=== PATIENT | female | born 1960 | race Two or more races ===

== ENCOUNTER 2020-01-14 23:27 | Emergency (ER) | payer MEDICAID, OTHER ==
[~2020-01-14] VITALS: Ht 162.6 cm; Wt 59.0 kg
[2020-01-14 23:38] VITALS: BP 139/87
[2020-01-14] MEDS ORDERED: GASTROGRAFIN 30 ML SOL ONE (23:51)
== END 2020-01-15 01:12 | disposition home or self-care (01) ==
LOC: EDBD 23:27 → ER 23:29
DX: K94.23 Gastrostomy malfunction (principal); I10 Essential (primary) hypertension
CPT/HCPCS: 74018; 99283; Q9963

== ENCOUNTER 2020-01-22 13:23 | Emergency (ER) | payer MEDICAID ==
[2020-01-22 13:34] VITALS: BP 135/80
[2020-01-22] MEDS ORDERED: GASTROGRAFIN 120 ML SOL ONE (14:20)
[2020-01-22] MEDS ORDERED: GASTROGRAFIN 30 ML SOL ONE (14:34)
== END 2020-01-22 16:42 | disposition home or self-care (01) ==
LOC: EDBD 13:23 → ER 13:23
DX: K94.23 Gastrostomy malfunction (principal); I10 Essential (primary) hypertension; Z86.73 Personal history of transient ischemic attack (TIA), and cerebral infarction without residual deficits
CPT/HCPCS: 43762; 74021; 99284; Q9963

== ENCOUNTER 2022-11-08 18:24 | Inpatient (IN) | payer MEDICAID ==
[~2022-11-08] VITALS: Ht 152.4 cm; Wt 49.3 kg
[2022-11-08] MEDS ORDERED: ETOMIDATE (2MG/ML) 20ML VIAL IV ONE ×2 (18:34→18:45)
[2022-11-08] MEDS ORDERED: SUCCINYLCHOLINE CHLORIDE 20 MG/ML 10ML VIAL IV ONE ×2 (18:35→18:45)
[2022-11-08] MEDS ORDERED: MIDAZOLAM DRIP 50 mg/50mL 50 ML IV ONE (18:38)
[2022-11-08] MEDS ORDERED: SODIUM CHLORIDE 0.9% 1,000 ML IVB ONE (18:45)
[2022-11-08] MEDS ORDERED: NOREPINEPHRINE 8 MG/250ML KIT 250 ML IV ONE (18:48)
[2022-11-08 18:49] VITALS: BP 79/41
[2022-11-08] MEDS: MIDAZOLAM DRIP 50 mg/50mL 50 ML IV SCH (19:15)
[2022-11-08] MEDS: NOREPINEPHRINE 8 MG/250ML KIT 250 ML IV SCH (19:15)
[2022-11-08 20:20] VITALS: BP 94/51
[2022-11-08 20:36] LABS: Basophils # (auto) 0 10 ^3/uL (0-0.2); Eosinophils # (auto) 0 10 ^3/uL (0-0.8); Hemoglobin 11.6 g/dL (12.2-16.2); Mean Corpuscular Hemoglobin 29.6 pg (28.0-32.0); Monocytes # (auto) 0.2 10 ^3/uL (0-1.3); Nucleated Red Blood Cells % 0.1 %
[2022-11-08 20:40] LABS: Basophils % (auto) 0.1 % (0.0-2.0); Hematocrit 38.7 % (36.0-46.0); Lymphocytes # (auto) 1.1 10 ^3/uL (0.4-5.4); Mean Corpuscular Hgb Conc. 29.9 g/dL (32.0-36.0); Monocytes % (auto) 2.2 % (0.0-12.0); Neutrophils # (auto) 6.8 10 ^3/uL (1.6-8.6); Neutrophils % (auto) 83.7 % (37.0-80.0); Red Blood Cells 3.91 10^6/uL (4.0-5.20); Red Cell Distribution Width 19.5 % (11.8-14.3); White Blood Cell 8.2 10^3/uL (4.4-10.8)
[2022-11-08 20:56] LABS: INR 1.18 (0.9-1.15); Partial Thromboplastin Time 25.6 sec (24.6-33.4)
[2022-11-08 21:07] LABS: BUN/Creatinine Ratio 58.8; Calcium 8.1 mg/dL (8.5-10.1); Magnesium 3.4 mg/dL (1.6-2.6); Potassium 3.9 mmol/L (3.5-5.1)
[2022-11-08 21:28] LABS: Bilirubin, Total 0.9 mg/dL (0.2-1.0); Total Protein 6.5 g/dL (6.4-8.2)
[2022-11-08] MEDS ORDERED: levoFLOXacin 500MG 100 ML IV ONE (21:30)
[2022-11-08] MEDS ORDERED: cefTRIAXone 1GM/50ML D5W 50 ML IV ONE (21:30)
[2022-11-08] MEDS ORDERED: SODIUM CHLORIDE 0.9% 1,000 ML IV ONE (21:30)
[2022-11-08 22:15] VITALS: BP 87/43
[2022-11-08] MEDS ORDERED: LACTATED RINGER'S 2,000 ML IV ONE (22:15)
[2022-11-08 22:43] LABS: Urine Bacteria NONE SEEN /hpf (None Seen); Urine Blood TRACE /uL (Negative); Urine Mucus FEW (None Seen); Urine Specific Gravity 1.029 (1.001-1.035); Urine WBC 3 /hpf (0 - 5)
[2022-11-09] VITALS (74 sets, daily range): BP systolic 90–138; BP diastolic 42–66
[2022-11-09] MEDS ORDERED: D5W 5% 1,000 ML IV ONE (00:15)
[2022-11-09] MEDS ORDERED: ALBUMIN 25% 100 ML IV ONE (02:30)
[2022-11-09] MEDS ORDERED: VASOPRESSIN 20 UNIT/ML ONE (03:00)
[2022-11-09] MEDS ORDERED: NITROGLYCERIN 0.4 MG SL TAB SL PRN (03:00)
[2022-11-09] MEDS ORDERED: VANCOMYCIN PER PHARMACY 0 MG IV SCH (03:00)
[2022-11-09] MEDS ORDERED: MORPHINE SULFATE INJ 2 MG/ml SYRG IV PRN (03:00)
[2022-11-09] MEDS ORDERED: D5W 5% 1,000 ML IV SCH (03:00)
[2022-11-09] MEDS ORDERED: ACETAMINOPHEN 325 MG TAB PO PRN (03:00)
[2022-11-09] MEDS ORDERED: ONDANSETRON HCL 4 MG/2 ML VIAL IV PRN (03:00)
[2022-11-09] MEDS ORDERED: DEXTROSE (50%) 50ML SYRG IV PRN ×5 (03:00→11:00)
[2022-11-09] MEDS: VASOPRESSIN 20 UNITS in SODIUM CHL 0.9% 99 ML IV SCH ×2 (03:08→13:52)
[2022-11-09 03:30] LABS: Calcium 7.4 mg/dL (8.5-10.1)
[2022-11-09] MEDS ORDERED: VANCOMYCIN 1GM/250ML 250 ML IV ONE (03:30)
[2022-11-09 03:39] LABS: BUN/Creatinine Ratio 52.6
[2022-11-09] MEDS ORDERED: SOD CHL 0.45% 1,000 ML IV SCH (05:30)
[2022-11-09] MEDS ORDERED: ACCU-CHEK COMFORT CURVE STRIP VI SCH ×3 (06:00→12:00)
[2022-11-09] MEDS ORDERED: InsuLIN REG 1unit/0.01ml Soln (100units/ml) SC SCH ×3 (06:00→12:00)
[2022-11-09] MEDS: NOREPINEPHRINE 8 MG/250ML KIT 250 ML IV SCH ×3 (08:58→21:32)
[2022-11-09] MEDS: MIDAZOLAM DRIP 50 mg/50mL 50 ML IV SCH ×4 (09:56→23:20)
[2022-11-09] MEDS ORDERED: AZITHROMYCIN 500MG/ 250ML 250 ML IV SCH (10:00)
[2022-11-09] MEDS ORDERED: DexAMETHasone SOD PHOS 10MG/1ML VIAL INJ IV ONE (11:00)
[2022-11-09] MEDS ORDERED: CEFEPIME 2 GM in SODIUM CHL 0.9% 50 ML IV ONE (11:00)
[2022-11-09] MEDS: ENOXAPARIN SOD 40 MG/0.4 ML SYRINGE SC SCH (12:01)
[2022-11-09] MEDS: PANTOPRAZOLE 40 MG/10 ML VIAL INJ IV SCH (12:01)
[2022-11-09] MEDS: fentaNYL Drip 2500mCg/250mlNS 250 ML IV SCH (12:06)
[2022-11-09] MEDS: ACCU-CHEK COMFORT CURVE STRIP VI SCH ×13 (12:06→23:35)
[2022-11-09] MEDS: InsuLIN REG 1unit/0.01ml Soln (100units/ml) SC SCH ×4 (12:22→23:34)
[2022-11-09] MEDS: POTASSIUM CHLORIDE 40 MEQ in SOD CHL 0.45% 1,000 ML IV SCH ×2 (16:31→21:12)
[2022-11-09] MEDS: InsuLIN R (HUMAN) 100 UNITS in SODIUM CHL 0.9% 99 ML IV SCH (16:46)
[2022-11-09] MEDS ORDERED: ASPI325T4 PO (19:13)
[2022-11-09] MEDS ORDERED: PSYL58.632 PO (19:13)
[2022-11-09] MEDS: FREE WATER GT SCH (22:00)
[2022-11-09] MEDS: CEFEPIME 2 GM in SODIUM CHL 0.9% 50 ML IV SCH (22:00)
[2022-11-09 22:22] LABS: Magnesium 2.6 mg/dL (1.6-2.6); Potassium 3.1 mmol/L (3.5-5.1)
[2022-11-10] VITALS (103 sets, daily range): BP systolic 90–132; BP diastolic 50–69
[2022-11-10] MEDS: VASOPRESSIN 20 UNITS in SODIUM CHL 0.9% 99 ML IV SCH ×3 (00:59→23:13)
[2022-11-10] MEDS: ACCU-CHEK COMFORT CURVE STRIP VI SCH ×17 (01:30→22:46)
[2022-11-10] MEDS: FREE WATER GT SCH ×7 (02:13→23:28)
[2022-11-10] MEDS: NOREPINEPHRINE 8 MG/250ML KIT 250 ML IV SCH ×2 (04:01→14:43)
[2022-11-10] MEDS: MIDAZOLAM DRIP 50 mg/50mL 50 ML IV SCH (04:02)
[2022-11-10] MEDS: InsuLIN REG 1unit/0.01ml Soln (100units/ml) SC SCH ×2 (04:03→09:06)
[2022-11-10 04:14] LABS: Basophils # (auto) 0.1 10 ^3/uL (0-0.2); Basophils % (auto) 0.4 % (0.0-2.0); Eosinophils # (auto) 0 10 ^3/uL (0-0.8); Hematocrit 32.8 % (36.0-46.0); Hemoglobin 10.3 g/dL (12.2-16.2); Lymphocytes # (auto) 1.4 10 ^3/uL (0.4-5.4); Lymphocytes % (auto) 10.6 % (10.0-50.0); Mean Corpuscular Hemoglobin 29.1 pg (28.0-32.0); Mean Corpuscular Hgb Conc. 31.3 g/dL (32.0-36.0); Mean Corpuscular Volume 93.1 fL (80.0-100.0); Monocytes # (auto) 0.2 10 ^3/uL (0-1.3); Monocytes % (auto) 1.3 % (0.0-12.0); Neutrophils # (auto) 11.3 10 ^3/uL (1.6-8.6); Neutrophils % (auto) 87.7 % (37.0-80.0); Nucleated Red Blood Cells % 0.2 %; Red Blood Cells 3.52 10^6/uL (4.0-5.20); Red Cell Distribution Width 17.5 % (11.8-14.3); White Blood Cell 12.9 10^3/uL (4.4-10.8)
[2022-11-10 04:41] LABS: Albumin 2.3 g/dL (3.4-5.0); Calcium 7.9 mg/dL (8.5-10.1); Potassium 3.6 mmol/L (3.5-5.1)
[2022-11-10 04:44] LABS: Bilirubin, Total 0.7 mg/dL (0.2-1.0); Total Protein 5.5 g/dL (6.4-8.2)
[2022-11-10] MEDS: fentaNYL Drip 2500mCg/250mlNS 250 ML IV SCH (07:37)
[2022-11-10] MEDS: PANTOPRAZOLE 40 MG/10 ML VIAL INJ IV SCH (10:16)
[2022-11-10] MEDS: D5W 5% 1,000 ML IV SCH ×3 (10:16→23:05)
[2022-11-10] MEDS: DexAMETHasone SOD PHOS 10MG/1ML VIAL INJ IV SCH (10:16)
[2022-11-10] MEDS: CEFEPIME 2 GM in SODIUM CHL 0.9% 50 ML IV SCH ×2 (10:16→21:15)
[2022-11-10] MEDS: ENOXAPARIN SOD 40 MG/0.4 ML SYRINGE SC SCH (10:16)
[2022-11-10] MEDS: InsuLIN R (HUMAN) 100 UNITS in SODIUM CHL 0.9% 99 ML IV SCH ×2 (10:36→19:45)
[2022-11-10] MEDS: INSULIN LANTUS (GLARGINE) 1 /0.01ml (100units/ml) SC SCH (10:36)
[2022-11-10] MEDS: VANCOMYCIN 750mg/250ml 250 ML IV SCH (12:57)
[2022-11-10 14:56] LABS: Cholesterol 113 mg/dL (< 200)
[2022-11-10 14:58] LABS: HDL Cholesterol 12 mg/dL (40-59); LDL Cholesterol 58 mg/dL (< 100); Triglycerides 250 mg/dL (< 150)
[2022-11-10] MEDS: Juven Fruit Punch Powder PACKET 28.8gm PO SCH (18:00)
[2022-11-11] VITALS (100 sets, daily range): BP systolic 79–135; BP diastolic 32–72
[2022-11-11] MEDS: ACCU-CHEK COMFORT CURVE STRIP VI SCH ×12 (00:05→23:51)
[2022-11-11] MEDS: MIDAZOLAM DRIP 50 mg/50mL 50 ML IV SCH ×3 (01:11→21:22)
[2022-11-11] MEDS: InsuLIN R (HUMAN) 100 UNITS in SODIUM CHL 0.9% 99 ML IV SCH (01:13)
[2022-11-11] MEDS: D5W 5% 1,000 ML IV SCH (01:13)
[2022-11-11] MEDS: FREE WATER GT SCH ×7 (03:00→23:51)
[2022-11-11] MEDS: NOREPINEPHRINE 8 MG/250ML KIT 250 ML IV SCH ×2 (03:32→23:54)
[2022-11-11 03:59] LABS: Basophils # (auto) 0.1 10 ^3/uL (0-0.2); Basophils % (auto) 0.4 % (0.0-2.0); Eosinophils # (auto) 0 10 ^3/uL (0-0.8); Hematocrit 33.5 % (36.0-46.0); Hemoglobin 10.4 g/dL (12.2-16.2); Lymphocytes % (auto) 7.5 % (10.0-50.0); Mean Corpuscular Hemoglobin 28.9 pg (28.0-32.0); Mean Corpuscular Volume 93.1 fL (80.0-100.0); Monocytes # (auto) 0.2 10 ^3/uL (0-1.3); Monocytes % (auto) 1.5 % (0.0-12.0); Neutrophils # (auto) 11.9 10 ^3/uL (1.6-8.6); Neutrophils % (auto) 90.6 % (37.0-80.0); Nucleated Red Blood Cells % 0.1 %; Red Cell Distribution Width 17.1 % (11.8-14.3); White Blood Cell 13.1 10^3/uL (4.4-10.8)
[2022-11-11 04:09] LABS: BUN/Creatinine Ratio 35.2; Calcium 7.7 mg/dL (8.5-10.1)
[2022-11-11 04:21] LABS: Potassium 2.4 mmol/L (3.5-5.1)
[2022-11-11] MEDS: Juven Fruit Punch Powder PACKET 28.8gm PO SCH ×2 (08:00→18:00)
[2022-11-11] MEDS: ENOXAPARIN SOD 40 MG/0.4 ML SYRINGE SC SCH (09:03)
[2022-11-11] MEDS: PANTOPRAZOLE 40 MG/10 ML VIAL INJ IV SCH (09:03)
[2022-11-11] MEDS: POTASSIUM CHL 20MEQ/100ML 100 ML IV SCH ×2 (09:04→11:40)
[2022-11-11] MEDS: DexAMETHasone SOD PHOS 10MG/1ML VIAL INJ IV SCH (09:04)
[2022-11-11] MEDS: CEFEPIME 2 GM in SODIUM CHL 0.9% 50 ML IV SCH ×2 (09:05→22:05)
[2022-11-11] MEDS: INSULIN LANTUS (GLARGINE) 1 /0.01ml (100units/ml) SC SCH (09:05)
[2022-11-11] MEDS: POTASSIUM CHLORIDE 40 MEQ in D5W 5% 1,000 ML IV SCH ×3 (09:30→21:20)
[2022-11-11] MEDS: VASOPRESSIN 20 UNITS in SODIUM CHL 0.9% 99 ML IV SCH ×2 (10:20→21:19)
[2022-11-11 10:32] LABS: BUN/Creatinine Ratio 30.6; Calcium 8.2 mg/dL (8.5-10.1)
[2022-11-11] MEDS: fentaNYL Drip 2500mCg/250mlNS 250 ML IV SCH (11:15)
[2022-11-11] MEDS ORDERED: DEXTROSE (50%) 50ML SYRG IV PRN (11:30)
[2022-11-11] MEDS: InsuLIN REG 1unit/0.01ml Soln (100units/ml) SC SCH ×4 (11:53→23:52)
[2022-11-11 11:58] LABS: Potassium 2.5 mmol/L (3.5-5.1)
[2022-11-11] MEDS: VANCOMYCIN 750mg/250ml 250 ML IV SCH (12:30)
[2022-11-11] MEDS: Osmolite 1.2 Cal One Liter GT SCH (21:23)
[2022-11-12] VITALS (98 sets, daily range): BP systolic 81–126; BP diastolic 33–67
[2022-11-12] MEDS: FREE WATER GT SCH ×6 (03:29→18:00)
[2022-11-12] MEDS: ACCU-CHEK COMFORT CURVE STRIP VI SCH ×3 (04:30→18:11)
[2022-11-12] MEDS: InsuLIN REG 1unit/0.01ml Soln (100units/ml) SC SCH ×3 (04:31→18:29)
[2022-11-12 04:44] LABS: Basophils # (auto) 0.1 10 ^3/uL (0-0.2); Basophils % (auto) 0.6 % (0.0-2.0); Eosinophils # (auto) 0 10 ^3/uL (0-0.8); Hematocrit 33.2 % (36.0-46.0); Hemoglobin 10.6 g/dL (12.2-16.2); Lymphocytes # (auto) 1.1 10 ^3/uL (0.4-5.4); Lymphocytes % (auto) 8.3 % (10.0-50.0); Mean Corpuscular Hemoglobin 29.4 pg (28.0-32.0); Mean Corpuscular Hgb Conc. 31.9 g/dL (32.0-36.0); Mean Corpuscular Volume 92.1 fL (80.0-100.0); Monocytes # (auto) 0.3 10 ^3/uL (0-1.3); Monocytes % (auto) 2.4 % (0.0-12.0); Neutrophils % (auto) 88.7 % (37.0-80.0); Red Blood Cells 3.61 10^6/uL (4.0-5.20); Red Cell Distribution Width 17.3 % (11.8-14.3); White Blood Cell 13.5 10^3/uL (4.4-10.8)
[2022-11-12 05:13] LABS: Calcium 7.6 mg/dL (8.5-10.1); Potassium 4.5 mmol/L (3.5-5.1)
[2022-11-12] MEDS: POTASSIUM CHLORIDE 40 MEQ in D5W 5% 1,000 ML IV SCH (05:54)
[2022-11-12] MEDS: Juven Fruit Punch Powder PACKET 28.8gm PO SCH ×2 (08:00→16:58)
[2022-11-12] MEDS: VASOPRESSIN 20 UNITS in SODIUM CHL 0.9% 99 ML IV SCH ×2 (08:34→19:41)
[2022-11-12] MEDS: DexAMETHasone SOD PHOS 10MG/1ML VIAL INJ IV SCH (09:00)
[2022-11-12] MEDS: PANTOPRAZOLE 40 MG/10 ML VIAL INJ IV SCH (09:00)
[2022-11-12] MEDS: CEFEPIME 2 GM in SODIUM CHL 0.9% 50 ML IV SCH (09:00)
[2022-11-12] MEDS: ENOXAPARIN SOD 40 MG/0.4 ML SYRINGE SC SCH (09:00)
[2022-11-12] MEDS: INSULIN LANTUS (GLARGINE) 1 /0.01ml (100units/ml) SC SCH (09:02)
[2022-11-12] MEDS: fentaNYL Drip 2500mCg/250mlNS 250 ML IV SCH (11:15)
[2022-11-12] MEDS ORDERED: DEXTROSE (50%) 50ML SYRG IV PRN (11:30)
[2022-11-12] MEDS ORDERED: levoFLOXacin 750MG 150 ML IV ONE (11:30)
[2022-11-12] MEDS: NOREPINEPHRINE 8 MG/250ML KIT 250 ML IV SCH (14:27)
[2022-11-12] MEDS: D5W 5% 1,000 ML IV SCH ×2 (15:45→23:19)
[2022-11-12] MEDS ORDERED: DESMOPRESSIN ACET 4 MCG/1 ML AMPULE IV ONE (17:00)
[2022-11-12 18:58] LABS: Urine Bacteria FEW /hpf (None Seen); Urine Blood 1+ /uL (Negative); Urine Mucus FEW (None Seen); Urine Specific Gravity 1.007 (1.001-1.035); Urine WBC 2 /hpf (0 - 5)
[2022-11-13] VITALS (104 sets, daily range): BP systolic 83–122; BP diastolic 41–69
[2022-11-13] MEDS: InsuLIN REG 1unit/0.01ml Soln (100units/ml) SC SCH ×4 (00:34→18:14)
[2022-11-13] MEDS: ACCU-CHEK COMFORT CURVE STRIP VI SCH ×4 (00:34→18:12)
[2022-11-13] MEDS: FREE WATER GT SCH ×7 (04:52→18:12)
[2022-11-13] MEDS: D5W 5% 1,000 ML IV SCH ×3 (06:10→19:57)
[2022-11-13] MEDS: NOREPINEPHRINE 8 MG/250ML KIT 250 ML IV SCH ×3 (06:22→20:41)
[2022-11-13] MEDS: VASOPRESSIN 20 UNITS in SODIUM CHL 0.9% 99 ML IV SCH ×2 (06:48→16:36)
[2022-11-13] MEDS: Juven Fruit Punch Powder PACKET 28.8gm PO SCH ×2 (08:00→18:00)
[2022-11-13] MEDS: PANTOPRAZOLE 40 MG/10 ML VIAL INJ IV SCH (09:09)
[2022-11-13] MEDS: levoFLOXacin 750MG 150 ML IV SCH (09:09)
[2022-11-13] MEDS: ENOXAPARIN SOD 40 MG/0.4 ML SYRINGE SC SCH (09:10)
[2022-11-13] MEDS: DexAMETHasone SOD PHOS 10MG/1ML VIAL INJ IV SCH (09:10)
[2022-11-13] MEDS: INSULIN LANTUS (GLARGINE) 1 /0.01ml (100units/ml) SC SCH (09:10)
[2022-11-13 10:00] LABS: Hematocrit 31.3 % (36.0-46.0); Hemoglobin 10.3 g/dL (12.2-16.2)
[2022-11-13 10:02] LABS: Mean Corpuscular Hemoglobin 29.2 pg (28.0-32.0); Mean Corpuscular Hgb Conc. 32.9 g/dL (32.0-36.0); Mean Corpuscular Volume 88.7 fL (80.0-100.0); Red Blood Cells 3.52 10^6/uL (4.0-5.20); Red Cell Distribution Width 15.9 % (11.8-14.3)
[2022-11-13 10:12] LABS: Band Neutrophils % (manual) 0; Basophils % (manual) 0 (0.0-2.0); Blast Cells 0; Metamyelocytes % 0; Monocytes % (manual) 0 (0-12); Myelocytes % 0; Promyelocytes % 0; Reactive Lymphocytes 0
[2022-11-13] MEDS: fentaNYL Drip 2500mCg/250mlNS 250 ML IV SCH (11:15)
[2022-11-13 11:59] LABS: Eosinophils % (manual) 3 (0-7); Lymphocytes % (manual) 15 (10.0-50.0)
[2022-11-13 13:06] LABS: BUN/Creatinine Ratio 25.5; Calcium 7.2 mg/dL (8.5-10.1)
[2022-11-13 13:08] LABS: Potassium 2.8 mmol/L (3.5-5.1)
[2022-11-13] MEDS: POTASSIUM CHL 20MEQ/100ML 100 ML IV SCH ×4 (16:36→22:57)
[2022-11-13] MEDS: MIDAZOLAM DRIP 50 mg/50mL 50 ML IV SCH (18:45)
[2022-11-14] VITALS (101 sets, daily range): BP systolic 71–151; BP diastolic 32–78
[2022-11-14] MEDS: InsuLIN REG 1unit/0.01ml Soln (100units/ml) SC SCH ×4 (00:39→18:56)
[2022-11-14] MEDS: FREE WATER GT SCH ×5 (00:40→11:50)
[2022-11-14] MEDS: ACCU-CHEK COMFORT CURVE STRIP VI SCH ×4 (00:40→18:00)
[2022-11-14] MEDS: D5W 5% 1,000 ML IV SCH ×2 (02:41→11:49)
[2022-11-14 05:02] LABS: Basophils # (auto) 0 10 ^3/uL (0-0.2); Basophils % (auto) 0.4 % (0.0-2.0); Eosinophils # (auto) 0.1 10 ^3/uL (0-0.8); Eosinophils % (auto) 0.8 % (0.0-7.0); Hematocrit 30.2 % (36.0-46.0); Lymphocytes # (auto) 2.9 10 ^3/uL (0.4-5.4); Lymphocytes % (auto) 22.7 % (10.0-50.0); Mean Corpuscular Hemoglobin 28.9 pg (28.0-32.0); Mean Corpuscular Hgb Conc. 33.2 g/dL (32.0-36.0); Monocytes # (auto) 0.3 10 ^3/uL (0-1.3); Monocytes % (auto) 2.2 % (0.0-12.0); Neutrophils # (auto) 9.6 10 ^3/uL (1.6-8.6); Neutrophils % (auto) 73.9 % (37.0-80.0); Nucleated Red Blood Cells % 0.1 %; Red Blood Cells 3.47 10^6/uL (4.0-5.20); Red Cell Distribution Width 16.1 % (11.8-14.3)
[2022-11-14] MEDS: VASOPRESSIN 20 UNITS in SODIUM CHL 0.9% 99 ML IV SCH ×4 (05:02→17:21)
[2022-11-14 05:29] LABS: Albumin 1.8 g/dL (3.4-5.0); BUN/Creatinine Ratio 14.6; Potassium 3.5 mmol/L (3.5-5.1)
[2022-11-14 05:32] LABS: Bilirubin, Total 0.6 mg/dL (0.2-1.0); Total Protein 5.1 g/dL (6.4-8.2)
[2022-11-14] MEDS: Juven Fruit Punch Powder PACKET 28.8gm PO SCH ×2 (08:00→18:00)
[2022-11-14] MEDS: ENOXAPARIN SOD 40 MG/0.4 ML SYRINGE SC SCH (10:00)
[2022-11-14] MEDS: PANTOPRAZOLE 40 MG/10 ML VIAL INJ IV SCH (10:14)
[2022-11-14] MEDS: DexAMETHasone SOD PHOS 10MG/1ML VIAL INJ IV SCH (10:14)
[2022-11-14] MEDS: levoFLOXacin 750MG 150 ML IV SCH (10:15)
[2022-11-14] MEDS: MIDAZOLAM DRIP 50 mg/50mL 50 ML IV SCH (10:16)
[2022-11-14] MEDS: fentaNYL Drip 2500mCg/250mlNS 250 ML IV SCH (10:16)
[2022-11-14] MEDS: INSULIN LANTUS (GLARGINE) 1 /0.01ml (100units/ml) SC SCH (10:16)
[2022-11-14] MEDS ORDERED: SODIUM CHL 3% 500 ML IV ONE (12:45)
[2022-11-14] MEDS ORDERED: SODIUM CHLORIDE 0.9% 1,000 ML IV ONE (12:45)
[2022-11-14] MEDS: NOREPINEPHRINE BITARTRATE 16 MG in SODIUM CHL 0.9% 234 ML IV SCH (13:39)
[2022-11-15] VITALS (99 sets, daily range): BP systolic 85–150; BP diastolic 42–71
[2022-11-15] MEDS: ACCU-CHEK COMFORT CURVE STRIP VI SCH ×4 (00:06→18:00)
[2022-11-15] MEDS: InsuLIN REG 1unit/0.01ml Soln (100units/ml) SC SCH ×4 (00:06→17:46)
[2022-11-15 00:53] LABS: BUN/Creatinine Ratio 13.6; Calcium 6.6 mg/dL (8.5-10.1)
[2022-11-15 00:58] LABS: Potassium 2.9 mmol/L (3.5-5.1)
[2022-11-15] MEDS: POTASSIUM CHL 20MEQ/100ML 100 ML IV SCH ×5 (01:30→23:22)
[2022-11-15] MEDS ORDERED: POTASSIUM CHL 20MEQ/100ML 300 ML IV ONE (01:41)
[2022-11-15] MEDS: VASOPRESSIN 20 UNITS in SODIUM CHL 0.9% 99 ML IV SCH ×2 (05:09→16:41)
[2022-11-15] MEDS: Juven Fruit Punch Powder PACKET 28.8gm PO SCH ×2 (08:00→18:00)
[2022-11-15] MEDS: ENOXAPARIN SOD 40 MG/0.4 ML SYRINGE SC SCH (10:00)
[2022-11-15] MEDS: PANTOPRAZOLE 40 MG/10 ML VIAL INJ IV SCH (10:06)
[2022-11-15] MEDS: DexAMETHasone SOD PHOS 10MG/1ML VIAL INJ IV SCH (10:06)
[2022-11-15] MEDS: levoFLOXacin 750MG 150 ML IV SCH (10:21)
[2022-11-15] MEDS: INSULIN LANTUS (GLARGINE) 1 /0.01ml (100units/ml) SC SCH (10:45)
[2022-11-15] MEDS: fentaNYL Drip 2500mCg/250mlNS 250 ML IV SCH (11:15)
[2022-11-15] MEDS: ALBUMIN 25% 100 ML IV SCH ×2 (12:58→20:50)
[2022-11-15] MEDS: NOREPINEPHRINE BITARTRATE 16 MG in SODIUM CHL 0.9% 234 ML IV SCH (13:51)
[2022-11-15] MEDS ORDERED: CATHFLO ACTIVASE (ALTEPLASE) 2 MG VIAL IV ONE (16:15)
[2022-11-15] MEDS: MIDAZOLAM DRIP 50 mg/50mL 50 ML IV SCH (18:45)
[2022-11-15] MEDS: Osmolite 1.2 Cal One Liter GT SCH (20:00)
[2022-11-15 21:03] LABS: Albumin 2.7 g/dL (3.4-5.0)
[2022-11-15 21:06] LABS: BUN/Creatinine Ratio 17.4; Bilirubin, Total 0.8 mg/dL (0.2-1.0); Total Protein 5.2 g/dL (6.4-8.2)
[2022-11-15 21:12] LABS: Potassium 2.4 mmol/L (3.5-5.1)
[2022-11-16] VITALS (96 sets, daily range): BP systolic 73–153; BP diastolic 30–65
[2022-11-16] MEDS ORDERED: POTASSIUM CHL 20MEQ/100ML 200 ML IV ONE (00:41)
[2022-11-16] MEDS: POTASSIUM CHL 20MEQ/100ML 100 ML IV SCH ×4 (01:24→17:25)
[2022-11-16] MEDS: VASOPRESSIN 20 UNITS in SODIUM CHL 0.9% 99 ML IV SCH (03:32)
[2022-11-16] MEDS: ALBUMIN 25% 100 ML IV SCH (04:53)
[2022-11-16] MEDS: InsuLIN REG 1unit/0.01ml Soln (100units/ml) SC SCH ×5 (06:00→23:38)
[2022-11-16] MEDS: ACCU-CHEK COMFORT CURVE STRIP VI SCH ×5 (06:02→23:39)
[2022-11-16] MEDS: NOREPINEPHRINE BITARTRATE 16 MG in SODIUM CHL 0.9% 234 ML IV SCH (07:18)
[2022-11-16] MEDS: fentaNYL Drip 2500mCg/250mlNS 250 ML IV SCH (07:18)
[2022-11-16] MEDS: Juven Fruit Punch Powder PACKET 28.8gm PO SCH ×2 (07:19→18:00)
[2022-11-16] MEDS: ENOXAPARIN SOD 40 MG/0.4 ML SYRINGE SC SCH (09:28)
[2022-11-16] MEDS: levoFLOXacin 750MG 150 ML IV SCH (09:28)
[2022-11-16] MEDS: DexAMETHasone SOD PHOS 10MG/1ML VIAL INJ IV SCH (09:28)
[2022-11-16] MEDS: PANTOPRAZOLE 40 MG/10 ML VIAL INJ IV SCH (09:28)
[2022-11-16] MEDS: INSULIN LANTUS (GLARGINE) 1 /0.01ml (100units/ml) SC SCH (10:00)
[2022-11-16 10:36] LABS: Mean Corpuscular Hemoglobin 29.3 pg (28.0-32.0); Red Blood Cells 2.48 10^6/uL (4.0-5.20)
[2022-11-16 10:38] LABS: Hematocrit 21.1 % (36.0-46.0); Hemoglobin 7.3 g/dL (12.2-16.2); Mean Corpuscular Hgb Conc. 34.4 g/dL (32.0-36.0); Mean Corpuscular Volume 85.2 fL (80.0-100.0); Red Cell Distribution Width 15.7 % (11.8-14.3); White Blood Cell 9.3 10^3/uL (4.4-10.8)
[2022-11-16 10:46] LABS: Basophils % (manual) 0 (0.0-2.0); Blast Cells 0; Eosinophils % (manual) 0 (0-7); Metamyelocytes % 0; Myelocytes % 0; Promyelocytes % 0; Reactive Lymphocytes 0
[2022-11-16 11:21] LABS: Potassium 3.1 mmol/L (3.5-5.1)
[2022-11-16 11:29] LABS: Albumin 3.8 g/dL (3.4-5.0); BUN/Creatinine Ratio 23.1; Bilirubin, Total 1.5 mg/dL (0.2-1.0); Calcium 7.8 mg/dL (8.5-10.1); Magnesium 1.6 mg/dL (1.6-2.6); Total Protein 5.6 g/dL (6.4-8.2)
[2022-11-16] MEDS ORDERED: MAGNESIUM SULFATE 1GM/100ML 100 ML IV ONE (12:00)
[2022-11-16 12:18] LABS: Band Neutrophils % (manual) 70; Lymphocytes % (manual) 25 (10.0-50.0); Monocytes % (manual) 5 (0-12)
[2022-11-16] MEDS: GLYCOPYRROLATE 0.2 MG/ML 1ML VIAL IV PRN (13:20)
[2022-11-16] MEDS: MIDODRINE HCL 10 MG TAB GT SCH (18:05)
[2022-11-16] MEDS: MIDAZOLAM DRIP 50 mg/50mL 50 ML IV SCH (18:05)
[2022-11-17] VITALS (90 sets, daily range): BP systolic 72–129; BP diastolic 31–47
[2022-11-17 04:25] LABS: Hemoglobin 7.3 g/dL (12.2-16.2); Mean Corpuscular Hemoglobin 30.5 pg (28.0-32.0); Mean Corpuscular Volume 87.5 fL (80.0-100.0)
[2022-11-17 04:27] LABS: Hematocrit 20.8 % (36.0-46.0); Mean Corpuscular Hgb Conc. 34.8 g/dL (32.0-36.0); Red Blood Cells 2.38 10^6/uL (4.0-5.20); Red Cell Distribution Width 15.8 % (11.8-14.3); White Blood Cell 7.9 10^3/uL (4.4-10.8)
[2022-11-17 04:35] LABS: Basophils % (manual) 0 (0.0-2.0); Blast Cells 0; Eosinophils % (manual) 0 (0-7); Metamyelocytes % 0; Promyelocytes % 0; Reactive Lymphocytes 0
[2022-11-17 04:42] LABS: Albumin 3.3 g/dL (3.4-5.0); Calcium 7.9 mg/dL (8.5-10.1); Potassium 3.5 mmol/L (3.5-5.1)
[2022-11-17 04:46] LABS: BUN/Creatinine Ratio 41.7; Bilirubin, Total 0.8 mg/dL (0.2-1.0); Total Protein 5.3 g/dL (6.4-8.2)
[2022-11-17] MEDS: InsuLIN REG 1unit/0.01ml Soln (100units/ml) SC SCH ×3 (05:24→17:20)
[2022-11-17] MEDS: ACCU-CHEK COMFORT CURVE STRIP VI SCH ×3 (05:25→17:20)
[2022-11-17] MEDS: MIDODRINE HCL 10 MG TAB GT SCH ×3 (05:25→17:43)
[2022-11-17] MEDS: VASOPRESSIN 20 UNITS in SODIUM CHL 0.9% 99 ML IV SCH (05:34)
[2022-11-17 06:43] LABS: Band Neutrophils % (manual) 12; Lymphocytes % (manual) 26 (10.0-50.0); Monocytes % (manual) 9 (0-12); Myelocytes % 1
[2022-11-17] MEDS: Juven Fruit Punch Powder PACKET 28.8gm PO SCH ×2 (08:00→17:22)
[2022-11-17] MEDS: levoFLOXacin 750MG 150 ML IV SCH (09:58)
[2022-11-17] MEDS: PANTOPRAZOLE 40 MG/10 ML VIAL INJ IV SCH (09:58)
[2022-11-17] MEDS: DexAMETHasone SOD PHOS 10MG/1ML VIAL INJ IV SCH (09:58)
[2022-11-17] MEDS: ENOXAPARIN SOD 40 MG/0.4 ML SYRINGE SC SCH (09:58)
[2022-11-17] MEDS: INSULIN LANTUS (GLARGINE) 1 /0.01ml (100units/ml) SC SCH (10:00)
[2022-11-17] MEDS: DOPamine 1600MCG/ML D5W 250 ML IV SCH (10:37)
[2022-11-17] MEDS: fentaNYL Drip 2500mCg/250mlNS 250 ML IV SCH (11:15)
[2022-11-17] MEDS: NOREPINEPHRINE BITARTRATE 16 MG in SODIUM CHL 0.9% 234 ML IV SCH (11:45)
[2022-11-17] MEDS ORDERED: POTASSIUM CHLORIDE 40 MEQ, LIDOCAINE 1% (LOCAL ANESTH.) 4 ML in SODIUM CHL 0.9% 250 ML IV ONE ×2 (17:00→21:15)
[2022-11-17] MEDS: MIDAZOLAM DRIP 50 mg/50mL 50 ML IV SCH (18:45)
[2022-11-17] MEDS ORDERED: VASOPRESSIN 20 UNITS in SODIUM CHL 0.9% 99 ML IV PRN (19:45)
[2022-11-18] VITALS (100 sets, daily range): BP systolic 72–112; BP diastolic 33–68
[2022-11-18] MEDS ORDERED: ALBUTEROL SULF 2.5 MG/0.5ML(0.5%) NEB SOLN NEB PRN (00:45)
[2022-11-18] MEDS: ACCU-CHEK COMFORT CURVE STRIP VI SCH ×5 (01:06→23:13)
[2022-11-18] MEDS: DOPamine 1600MCG/ML D5W 250 ML IV SCH ×2 (02:25→17:51)
[2022-11-18 04:24] LABS: Basophils # (auto) 0 10 ^3/uL (0-0.2); Basophils % (auto) 0.1 % (0.0-2.0); Eosinophils # (auto) 0 10 ^3/uL (0-0.8); Eosinophils % (auto) 0.1 % (0.0-7.0); Hemoglobin 10.6 g/dL (12.2-16.2); Lymphocytes # (auto) 0.9 10 ^3/uL (0.4-5.4); Lymphocytes % (auto) 9.2 % (10.0-50.0); Mean Corpuscular Hemoglobin 29.9 pg (28.0-32.0); Mean Corpuscular Hgb Conc. 34.1 g/dL (32.0-36.0); Mean Corpuscular Volume 87.5 fL (80.0-100.0); Monocytes # (auto) 0.2 10 ^3/uL (0-1.3); Monocytes % (auto) 1.7 % (0.0-12.0); Neutrophils # (auto) 8.4 10 ^3/uL (1.6-8.6); Neutrophils % (auto) 88.9 % (37.0-80.0); Nucleated Red Blood Cells % 0.2 %; Red Blood Cells 3.55 10^6/uL (4.0-5.20); White Blood Cell 9.5 10^3/uL (4.4-10.8)
[2022-11-18 04:34] LABS: Albumin 3.4 g/dL (3.4-5.0); Calcium 8.2 mg/dL (8.5-10.1); Magnesium 2.2 mg/dL (1.6-2.6); Potassium 3.6 mmol/L (3.5-5.1)
[2022-11-18 04:38] LABS: BUN/Creatinine Ratio 35.1; Bilirubin, Total 0.8 mg/dL (0.2-1.0); Total Protein 6.1 g/dL (6.4-8.2)
[2022-11-18] MEDS: MIDODRINE HCL 10 MG TAB GT SCH ×3 (05:53→17:46)
[2022-11-18] MEDS: InsuLIN REG 1unit/0.01ml Soln (100units/ml) SC SCH ×5 (05:55→23:14)
[2022-11-18] MEDS: Juven Fruit Punch Powder PACKET 28.8gm PO SCH ×2 (08:00→17:46)
[2022-11-18] MEDS: levoFLOXacin 750MG 150 ML IV SCH (09:53)
[2022-11-18] MEDS: DexAMETHasone SOD PHOS 10MG/1ML VIAL INJ IV SCH (09:53)
[2022-11-18] MEDS: ENOXAPARIN SOD 40 MG/0.4 ML SYRINGE SC SCH (09:53)
[2022-11-18] MEDS: PANTOPRAZOLE 40 MG/10 ML VIAL INJ IV SCH (09:53)
[2022-11-18] MEDS: INSULIN LANTUS (GLARGINE) 1 /0.01ml (100units/ml) SC SCH (10:11)
[2022-11-19] VITALS (95 sets, daily range): BP systolic 76–130; BP diastolic 44–78
[2022-11-19 04:26] LABS: Basophils # (auto) 0 10 ^3/uL (0-0.2); Eosinophils # (auto) 0 10 ^3/uL (0-0.8); Hematocrit 33.3 % (36.0-46.0); Hemoglobin 10.9 g/dL (12.2-16.2); Lymphocytes % (auto) 7.4 % (10.0-50.0); Mean Corpuscular Hemoglobin 28.9 pg (28.0-32.0); Mean Corpuscular Hgb Conc. 32.6 g/dL (32.0-36.0); Mean Corpuscular Volume 88.6 fL (80.0-100.0); Monocytes # (auto) 0.3 10 ^3/uL (0-1.3); Monocytes % (auto) 1.9 % (0.0-12.0); Neutrophils # (auto) 12.2 10 ^3/uL (1.6-8.6); Neutrophils % (auto) 90.7 % (37.0-80.0); Nucleated Red Blood Cells % 0.1 %; Red Blood Cells 3.76 10^6/uL (4.0-5.20); Red Cell Distribution Width 17.1 % (11.8-14.3); White Blood Cell 13.5 10^3/uL (4.4-10.8)
[2022-11-19 04:50] LABS: Calcium 8.5 mg/dL (8.5-10.1); Potassium 3.3 mmol/L (3.5-5.1)
[2022-11-19 04:54] LABS: Albumin 3.1 g/dL (3.4-5.0); BUN/Creatinine Ratio 38.6; Bilirubin, Total 0.8 mg/dL (0.2-1.0); Total Protein 6.3 g/dL (6.4-8.2)
[2022-11-19] MEDS: MIDODRINE HCL 10 MG TAB GT SCH ×4 (05:36→18:14)
[2022-11-19] MEDS: ACCU-CHEK COMFORT CURVE STRIP VI SCH ×3 (05:36→18:13)
[2022-11-19] MEDS: InsuLIN REG 1unit/0.01ml Soln (100units/ml) SC SCH ×3 (05:36→18:00)
[2022-11-19] MEDS: DOPamine 1600MCG/ML D5W 250 ML IV SCH ×2 (05:38→19:00)
[2022-11-19] MEDS ORDERED: POTASSIUM EFFERVESENT TAB 25 MEQ PO ONE (07:45)
[2022-11-19] MEDS: Juven Fruit Punch Powder PACKET 28.8gm PO SCH ×2 (08:00→18:00)
[2022-11-19] MEDS: ENOXAPARIN SOD 40 MG/0.4 ML SYRINGE SC SCH (09:22)
[2022-11-19] MEDS: DexAMETHasone SOD PHOS 10MG/1ML VIAL INJ IV SCH (09:22)
[2022-11-19] MEDS: PANTOPRAZOLE 40 MG/10 ML VIAL INJ IV SCH (09:22)
[2022-11-19] MEDS: levoFLOXacin 750MG 150 ML IV SCH (09:23)
[2022-11-19] MEDS: INSULIN LANTUS (GLARGINE) 1 /0.01ml (100units/ml) SC SCH (09:24)
[2022-11-19] MEDS: PHENYLEPHRINE INJ 40 MG in SODIUM CHL 0.9% 246 ML IV SCH (11:15)
[2022-11-19] MEDS: Osmolite 1.2 Cal One Liter GT SCH (19:00)
[2022-11-20] VITALS (91 sets, daily range): BP systolic 84–147; BP diastolic 39–71
[2022-11-20] MEDS: ACCU-CHEK COMFORT CURVE STRIP VI SCH ×4 (00:29→18:10)
[2022-11-20] MEDS: InsuLIN REG 1unit/0.01ml Soln (100units/ml) SC SCH ×4 (00:29→18:09)
[2022-11-20 03:38] LABS: Basophils # (auto) 0 10 ^3/uL (0-0.2); Basophils % (auto) 0.1 % (0.0-2.0); Eosinophils # (auto) 0 10 ^3/uL (0-0.8); Hematocrit 28.2 % (36.0-46.0); Hemoglobin 9.4 g/dL (12.2-16.2); Lymphocytes # (auto) 0.8 10 ^3/uL (0.4-5.4); Lymphocytes % (auto) 6.2 % (10.0-50.0); Mean Corpuscular Hemoglobin 29.6 pg (28.0-32.0); Mean Corpuscular Hgb Conc. 33.4 g/dL (32.0-36.0); Mean Corpuscular Volume 88.6 fL (80.0-100.0); Monocytes # (auto) 0.2 10 ^3/uL (0-1.3); Monocytes % (auto) 1.2 % (0.0-12.0); Neutrophils # (auto) 12.3 10 ^3/uL (1.6-8.6); Neutrophils % (auto) 92.5 % (37.0-80.0); Nucleated Red Blood Cells % 0.1 %; Red Blood Cells 3.18 10^6/uL (4.0-5.20); Red Cell Distribution Width 17.7 % (11.8-14.3); White Blood Cell 13.3 10^3/uL (4.4-10.8)
[2022-11-20 04:02] LABS: Albumin 2.5 g/dL (3.4-5.0); Calcium 8.2 mg/dL (8.5-10.1); Potassium 3.9 mmol/L (3.5-5.1)
[2022-11-20 04:07] LABS: BUN/Creatinine Ratio 42.6; Bilirubin, Total 0.8 mg/dL (0.2-1.0); Total Protein 5.6 g/dL (6.4-8.2)
[2022-11-20] MEDS: DOPamine 1600MCG/ML D5W 250 ML IV SCH ×2 (05:50→19:53)
[2022-11-20] MEDS: MIDODRINE HCL 10 MG TAB GT SCH ×3 (05:53→18:08)
[2022-11-20] MEDS: Juven Fruit Punch Powder PACKET 28.8gm PO SCH ×2 (08:00→18:00)
[2022-11-20] MEDS: PHENYLEPHRINE INJ 40 MG in SODIUM CHL 0.9% 246 ML IV SCH (08:53)
[2022-11-20] MEDS: PANTOPRAZOLE 40 MG/10 ML VIAL INJ IV SCH (09:24)
[2022-11-20] MEDS: levoFLOXacin 750MG 150 ML IV SCH (09:24)
[2022-11-20] MEDS: DexAMETHasone SOD PHOS 10MG/1ML VIAL INJ IV SCH (09:25)
[2022-11-20] MEDS: ENOXAPARIN SOD 40 MG/0.4 ML SYRINGE SC SCH (09:25)
[2022-11-20] MEDS: INSULIN LANTUS (GLARGINE) 1 /0.01ml (100units/ml) SC SCH (09:35)
[2022-11-20] MEDS: FREE WATER GT SCH ×2 (11:46→18:10)
[2022-11-20] MEDS: Osmolite 1.2 Cal One Liter GT SCH (19:54)
[2022-11-21] VITALS (93 sets, daily range): BP systolic 80–125; BP diastolic 35–65
[2022-11-21] MEDS: MIDODRINE HCL 10 MG TAB GT SCH ×3 (06:00→18:03)
[2022-11-21] MEDS: InsuLIN REG 1unit/0.01ml Soln (100units/ml) SC SCH ×5 (06:00→23:21)
[2022-11-21] MEDS: ACCU-CHEK COMFORT CURVE STRIP VI SCH ×5 (06:00→23:20)
[2022-11-21] MEDS: FREE WATER GT SCH ×5 (06:00→23:53)
[2022-11-21] MEDS: PHENYLEPHRINE INJ 40 MG in SODIUM CHL 0.9% 246 ML IV SCH (07:35)
[2022-11-21] MEDS: Juven Fruit Punch Powder PACKET 28.8gm PO SCH ×2 (07:35→18:00)
[2022-11-21] MEDS: DexAMETHasone SOD PHOS 10MG/1ML VIAL INJ IV SCH (09:43)
[2022-11-21] MEDS: PANTOPRAZOLE 40 MG/10 ML VIAL INJ IV SCH (09:43)
[2022-11-21] MEDS: levoFLOXacin 750MG 150 ML IV SCH (09:43)
[2022-11-21] MEDS: INSULIN LANTUS (GLARGINE) 1 /0.01ml (100units/ml) SC SCH (10:00)
[2022-11-21] MEDS: DOPamine 1600MCG/ML D5W 250 ML IV SCH (10:00)
[2022-11-22] VITALS (94 sets, daily range): BP systolic 86–146; BP diastolic 39–69
[2022-11-22] MEDS: DOPamine 1600MCG/ML D5W 250 ML IV SCH ×2 (00:13→19:00)
[2022-11-22 04:36] LABS: Basophils # (auto) 0 10 ^3/uL (0-0.2); Basophils % (auto) 0.1 % (0.0-2.0); Eosinophils # (auto) 0 10 ^3/uL (0-0.8); Eosinophils % (auto) 0.1 % (0.0-7.0); Hematocrit 28.4 % (36.0-46.0); Hemoglobin 9.4 g/dL (12.2-16.2); Lymphocytes # (auto) 0.7 10 ^3/uL (0.4-5.4); Lymphocytes % (auto) 11.8 % (10.0-50.0); Mean Corpuscular Hemoglobin 29.5 pg (28.0-32.0); Mean Corpuscular Hgb Conc. 33.2 g/dL (32.0-36.0); Mean Corpuscular Volume 88.9 fL (80.0-100.0); Monocytes # (auto) 0.2 10 ^3/uL (0-1.3); Monocytes % (auto) 3.4 % (0.0-12.0); Neutrophils # (auto) 5.2 10 ^3/uL (1.6-8.6); Neutrophils % (auto) 84.6 % (37.0-80.0); Nucleated Red Blood Cells % 0.1 %; Red Blood Cells 3.19 10^6/uL (4.0-5.20); Red Cell Distribution Width 17.4 % (11.8-14.3); White Blood Cell 6.1 10^3/uL (4.4-10.8)
[2022-11-22 04:39] LABS: Potassium 3.3 mmol/L (3.5-5.1)
[2022-11-22 04:44] LABS: BUN/Creatinine Ratio 76.5; Calcium 8.3 mg/dL (8.5-10.1)
[2022-11-22] MEDS: MIDODRINE HCL 10 MG TAB GT SCH ×3 (05:38→18:48)
[2022-11-22] MEDS: FREE WATER GT SCH ×3 (05:38→18:47)
[2022-11-22] MEDS: ACCU-CHEK COMFORT CURVE STRIP VI SCH ×3 (05:39→18:48)
[2022-11-22] MEDS: InsuLIN REG 1unit/0.01ml Soln (100units/ml) SC SCH ×3 (05:39→18:56)
[2022-11-22] MEDS: PHENYLEPHRINE INJ 40 MG in SODIUM CHL 0.9% 246 ML IV SCH (07:25)
[2022-11-22] MEDS: Juven Fruit Punch Powder PACKET 28.8gm PO SCH ×3 (08:00→21:37)
[2022-11-22] MEDS: DexAMETHasone SOD PHOS 10MG/1ML VIAL INJ IV SCH (10:09)
[2022-11-22] MEDS: PANTOPRAZOLE 40 MG/10 ML VIAL INJ IV SCH (10:09)
[2022-11-22] MEDS: levoFLOXacin 750MG 150 ML IV SCH (10:10)
[2022-11-22] MEDS: INSULIN LANTUS (GLARGINE) 1 /0.01ml (100units/ml) SC SCH (10:11)
[2022-11-22] MEDS: GLYCOPYRROLATE 0.2 MG/ML 1ML VIAL IV PRN (10:27)
[2022-11-22] MEDS ORDERED: ENOXAPARIN SOD 40 MG/0.4 ML SYRINGE SC ONE (11:01)
[2022-11-22] MEDS: Osmolite 1.2 Cal One Liter GT SCH (19:00)
[2022-11-23] VITALS (85 sets, daily range): BP systolic 61–153; BP diastolic 27–87
[2022-11-23 05:05] LABS: BUN/Creatinine Ratio 52.6; Calcium 7.9 mg/dL (8.5-10.1)
[2022-11-23 05:34] LABS: Potassium 2.9 mmol/L (3.5-5.1)
[2022-11-23] MEDS: ACCU-CHEK COMFORT CURVE STRIP VI SCH ×4 (05:38→18:00)
[2022-11-23] MEDS: MIDODRINE HCL 10 MG TAB GT SCH ×3 (05:38→18:00)
[2022-11-23] MEDS: FREE WATER GT SCH ×4 (05:38→18:00)
[2022-11-23] MEDS: InsuLIN REG 1unit/0.01ml Soln (100units/ml) SC SCH ×4 (05:49→18:00)
[2022-11-23] MEDS ORDERED: POTASSIUM EFFERVESENT TAB 25 MEQ GT ONE ×2 (07:45→16:45)
[2022-11-23] MEDS: PHENYLEPHRINE INJ 40 MG in SODIUM CHL 0.9% 246 ML IV SCH ×2 (07:52→15:15)
[2022-11-23] MEDS: Juven Fruit Punch Powder PACKET 28.8gm PO SCH ×2 (08:00→18:00)
[2022-11-23] MEDS ORDERED: ENOXAPARIN SOD 40 MG/0.4 ML SYRINGE SC SCH (10:00)
[2022-11-23] MEDS: levoFLOXacin 750MG 150 ML IV SCH (10:30)
[2022-11-23] MEDS: DexAMETHasone SOD PHOS 10MG/1ML VIAL INJ IV SCH (10:30)
[2022-11-23] MEDS: PANTOPRAZOLE 40 MG/10 ML VIAL INJ IV SCH (10:30)
[2022-11-23] MEDS: INSULIN LANTUS (GLARGINE) 1 /0.01ml (100units/ml) SC SCH (10:50)
[2022-11-23] MEDS ORDERED: FUROSEMIDE 20 MG/2 ML VIAL ONE ×2 (14:24→14:29)
[2022-11-23] MEDS ORDERED: FUROSEMIDE 20 MG/2 ML VIAL IV ONE (14:30)
[2022-11-23] MEDS ORDERED: LORazepam 2MG/ML-1ML VIAL IV PRN (18:30)
[2022-11-23] MEDS: MORPHINE SULFATE INJ 2 MG/ml SYRG IV PRN ×2 (18:37→22:45)
== END 2022-11-23 23:42 | DRG 720 ==
LOC: EDBD 18:24 → ER 18:26 → OVERFLOW 11-09 03:07 → ICU WEST 11-09 05:28
PROVIDERS: ADMIT Nurse Practitioner; ATTEND Internal Medicine Pulmonary Disease
PROC: 0BH17EZ Insertion of Endotracheal Airway into Trachea, Via Natural or Artificial Opening (ICD-10-PCS; principal; 2022-11-09)
PROC: 5A1955Z Respiratory Ventilation, Greater than 96 Consecutive Hours (ICD-10-PCS; 2022-11-09)
PROC: 5A09357 Assistance with Respiratory Ventilation, Less than 24 Consecutive Hours, Continuous Positive Airway Pressure (ICD-10-PCS; 2022-11-18)
DX: A41.89 Other specified sepsis (principal); J96.01 Acute respiratory failure with hypoxia; R65.21 Severe sepsis with septic shock; J12.82 Pneumonia due to coronavirus disease 2019; E43 Unspecified severe protein-calorie malnutrition; J90 Pleural effusion, not elsewhere classified; U07.1 COVID-19; E87.0 Hyperosmolality and hypernatremia; E86.0 Dehydration; Z66 Do not resuscitate; N17.9 Acute kidney failure, unspecified; E87.8 Other disorders of electrolyte and fluid balance, not elsewhere classified; E11.22 Type 2 diabetes mellitus with diabetic chronic kidney disease; E11.65 Type 2 diabetes mellitus with hyperglycemia; E87.6 Hypokalemia; I12.9 Hypertensive chronic kidney disease with stage 1 through stage 4 chronic kidney disease, or unspecified chronic kidney disease; N18.32 Chronic kidney disease, stage 3b; L89.156 Pressure-induced deep tissue damage of sacral region; R47.01 Aphasia; R00.1 Bradycardia, unspecified; Z51.5 Encounter for palliative care; Z86.73 Personal history of transient ischemic attack (TIA), and cerebral infarction without residual deficits; Z93.1 Gastrostomy status; Z83.3 Family history of diabetes mellitus; Z82.49 Family history of ischemic heart disease and other diseases of the circulatory system; Z82.0 Family history of epilepsy and other diseases of the nervous system; Z74.01 Bed confinement status; Z86.61 Personal history of infections of the central nervous system; Z68.1 Body mass index [BMI] 19.9 or less, adult
CPT/HCPCS: 31500; 36415; 36556; 36600; 70450; 71045; 71250; 72125; 74176; 76604; 80048; 80053; 80061; 80202; 81001; 82533; 82805; 82962; 83036; 83605; 83735; 83930; 83935; 84132; 84295; 84300; 84443; 84484; 85007; 85025; 85027; 85610; 85730; 87040; 87070; 87077; 87081; 87186; 87205; 87426; 93005; 93306; 93971; 94002; 94003; 94660; 96361; 96365; 99291; C9113; G0378; J0330; J0696; J1100; J1815; J1956; J2001; J2250; J3480; P9047